=== PATIENT | male | born 1985 | race Caucasian/White ===

== ENCOUNTER 2018-10-20 07:53 | Emergency (ER) | payer OTHER, SELFPAY ==
[2018-10-20 08:04] VITALS: BP 139/94; PULSE 45; RESP 18; TEMP 36.5; O2SAT 99; BMI 23.4
--- NOTE | 2018-10-20 08:07 | ED.NAVMDI ---
HPI - Nausea/Vomiting/Diarrhea General Chief complaint: Nausea/Vomiting/Diarrhea Stated complaint: constant throwing up,stomach discomfort, chest mel Time Seen by Provider: 10/20/18 07:58 Source: patient Mode of arrival: ambulatory Limitations: no limitations History of Present Illness HPI Narrative: Patient is a 33-year-old male presenting with vomiting for the last 3 days. He says he can't keep anything down not even water. He threw up 20 minutes prior to arrival he says that his chest hurts, and he is feeling short of breath. He also has diffuse abdominal pain. No diarrhea no fever. He says that he feels short of breath all the time even at rest. He admits to smoking a pack a day. MD complaint: nausea and vomiting Onset (ago): day(s) (3) Description of Diarrhea: none Associated Abdominal Pain: Yes Location of pain: diffuse Severity: moderate Relieving factors: none Related Data Previous Rx's Medication Instructions Recorded hydroxyzine pamoate [Vistaril] 25 mg PO Q6-8H PRN #20 cap 10/20/18 Allergies Allergy/AdvReac Type Severity Reaction Status Date / Time No Known Drug Allergies Allergy Verified 10/20/18 08:09 Review of Systems Review of Systems GENERAL: Denies chills, fatigue, malaise, fever, sweats, travel HEENT: Denies sinus pain, ear pain, sore throat, difficulty swallowing, neck pain RESPIRATORY: Denies dyspnea, cough, wheezing, hemoptysis, sputum. CARDIOVASCULAR: Denies chest pain, palpitations, orthopnea, edema GASTROINTESTINAL: see HPI : Denies dysuria, frequency, incontinence, hematuria, urinary retention, flank pain. MUSCULOSKELETAL: Denies weakness, joint pain, or bony pain SKIN: No rash, no erythema, no pruritus NEUROLOGIC: Denies weakness, dizziness, headache, numbness, change in speech, confusion PSYCHIATRIC: No concerning psychosocial issues. 12 point review of systems is negative except for those stated above and HPI [facility] Medical History Patient denies significant medical history (Acute) Social History Smoking Status: Current every day smoker Social History (Updated 10/20/18 @ 08:13 by Jessica Hanks DO) Smoking Status: Current every day smoker Exam Initial Vital Signs Initial Vital Signs: Vital Signs Temperature 97.7 F 10/20/18 08:04 Pulse Rate 45 L 10/20/18 08:04 Respiratory Rate 18 10/20/18 08:04 Blood Pressure 139/94 H 10/20/18 08:04 Pulse Oximetry 99 10/20/18 08:04 GENERAL: Well-appearing, well-nourished and in no acute distress. HEENT: Head atraumatic,EOMI, pupils reactive, face symmetric, moist mucous membranes CARDIOVASCULAR: Regular rate and rhythm without murmurs, rubs or gallops. RESPIRATORY: Breath sounds equal bilaterally, no wheezes rales or rhonchi. ABDOMEN: Soft, mildly tender epigastric area no guarding no rebound no lower abdominal pain EXTREMITIES: Normal range of motion, no clubbing or edema. Neurovascularly intact NEUROLOGICAL: Alert and oriented x4.Normal gait and speech. Cranial nerves II through XII grossly intact. SKIN: Warm, dry, no laceration, no petechiae, no rashes or lesions. Course Orders Ordered: ED Orders 10/20/18 08:06 XR chest 1V Stat 10/20/18 08:16 Complete Blood Count AUTO DIFF Stat Comprehensive Metabolic Panel Stat Lipase Stat Thyroid Stimulating Hormone Stat Troponin & CK Cardiac Panel Stat 10/20/18 09:06 EKG-12 Lead Stat Discontinued Medications Albuterol (Ventolin) 2.5 mg INH NOW ONE Stop: 10/20/18 08:07 Last Admin: 10/20/18 08:27 Dose: 2.5 mg Albuterol (Ventolin) 2.5 mg INH NOW ONE Stop: 10/20/18 09:07 Last Admin: 10/20/18 10:53 Dose: Not Given Hydroxyzine HCl (Vistaril) 50 mg IM NOW ONE Stop: 10/20/18 10:03 Last Admin: 10/20/18 10:09 Dose: 50 mg Sodium Chloride (Normal Saline 0.9%) 1,000 mls @ 1,000 mls/hr IV CONT CARLO Last Infusion: 10/20/18 09:17 Dose: 0 mls/hr Admin: 10/20/18 08:25 Dose: 1,000 mls/hr Sodium Chloride (Normal Saline 0.9%) 1,000 mls @ 1,000 mls/hr IV BOLUS ONE Stop: 10/20/18 11:04 Last Infusion: 10/20/18 11:43 Dose: 0 mls/hr Admin: 10/20/18 10:09 Dose: 1,000 mls/hr Ondansetron HCl (Zofran) 4 mg IV NOW ONE Stop: 10/20/18 08:07 Last Admin: 10/20/18 08:27 Dose: 4 mg Pantoprazole Sodium (Protonix) 40 mg IV NOW ONE Stop: 10/20/18 08:07 Last Admin: 10/20/18 08:26 Dose: 40 mg Consultations Consultation #1: 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 Recommends jogging in place at bedside see what happened. Heart rate. Heart rate improves can likely follow up with Dr. Dale and have echocardiogram Time: 10:23 Consultation #2: Dr. Dale consulted. Will schedule for follow up. Time: 10:31 Vital Signs - 8 hr 10/20/18 08:04 10/20/18 08:41 10/20/18 09:57 Temperature 97.7 F Pulse Rate 45 L 52 L 68 Respiratory Rate 18 15 23 Blood Pressure 139/94 H Blood Pressure [Right Arm] 140/87 Pulse Oximetry 99 100 100 10/20/18 11:00 10/20/18 12:06 Temperature Pulse Rate 50 L 45 L Respiratory Rate 24 15 Blood Pressure 141/87 H Blood Pressure [Right Arm] 117/79 Pulse Oximetry 98 100 MDM - Nausea/Vomiting/Diarrhea Lab Data Attestation: I reviewed the patient's lab results. Result diagrams: 10/20/18 08:16 10/20/18 08:16 Lab Results 10/20/18 10/20/18 10/20/18 Range/Units 08:16 08:16 08:16 WBC 10.3 (4.5-11.0) X10^3/uL RBC 4.84 (4.5-5.9) X10^6/uL Hgb 16.1 (13.5-17.5) g/dL Hct 46.1 (41-53) % MCV 95.2 (80-100) fL MCH 33.2 (26-34) PG MCHC 34.9 (30-36) % RDW 12.9 (11.6-14.8) % Plt Count 242 (150-400) X10^3/uL Neut % (Auto) 71.6 (50-75) % Lymph % (Auto) 18.6 L (25-40) % [place] % (Auto) 8.1 (3-14) % Eos % (Auto) 1.4 L (2-4) % Baso % (Auto) 0.3 (0-2) % Neut # (Auto) 7300 H (0880-2757) /uL Lymph # (Auto) 1900 (3531-3262) /uL [place] # (Auto) 800 (0-900) /uL Eos # (Auto) 100 (0-450) /uL Baso # (Auto) 0 (0-100) /uL Sodium 143 (137-145) mmol/L Potassium 4.0 (3.4-5.1) mmol/L Chloride 109 H (98-107) mmol/L Carbon Dioxide 24 (22-32) mmol/L BUN 16 (9-20) mg/dL Creatinine 0.80 (0.66-1.25) mg/dL Estimated GFR > 60.0 (>60) mL/min BUN/Creatinine Ratio 20.0 (6-22) Glucose 101 H (70-100) mg/dL Calcium 9.9 (8.4-10.2) mg/dL Total Bilirubin 0.5 (0.2-1.3) mg/dL AST 28 (17-59) IU/L ALT 33 (21-72) IU/L Alkaline Phosphatase 51 (38-126) U/L Total Creatine Kinase 47 L (55-170) U/L CK-MB (CK-2) TNP CK-MB (CK-2) Rel Index TNP Troponin I < 0.012 (0.01-0.034) ng/mL Total Protein 7.7 (6.3-8.2) g/dL Albumin 4.6 (3.5-5.0) g/dL Globulin 3.1 (1.7-4.1) g/dL Albumin/Globulin Ratio 1.5 (1.0-2.8) Lipase 47 (23-300) U/L TSH 1.28 (0.47-4.68) uIU/mL Imaging Data Chest x-ray: Radiologist's impression: PROCEDURE: XR CHEST 1V INDICATIONS: short of breath TECHNIQUE: One view of the chest was acquired. COMPARISON: None. FINDINGS: Surgical changes and devices: None. Lungs and pleura: Lungs are clear. No pleural effusions or pneumothorax. Mediastinum: Mediastinal contours appear normal. Heart size is normal. Bones and chest wall: No suspicious bony lesions. Overlying soft tissues appear unremarkable. IMPRESSION: No acute process. Dictated by: Tarik Flaherty M.D. on 10/20/2018 at 8:27 ECG Data Attestation: I personally reviewed and interpreted this ECG as follows: Prior ECG tracings: not available for review Interpretation: EKG 1.: 1 sinus bradycardia rate 46 NE interval 93 PAC noted delta wave also noted no priors to compare EKG 2. 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 He has not passed out he has no known family history of sudden cardiac . He is persistently nauseous and vomiting despite Zofran. His QTC is actually 440 reluctant to give him any QT prolongation medications. He is given 1 dose of Vistaril IM. Parents at bedside I have explained this to them. Joy recommend outpatient follow-up with Dr. Dale. I have called Dr. Dale, his office will contact patient. Patient's heart rate does increase with vomiting his 70s. His is symptomatic. This is likely an incidental finding. Discussed plan with patient's significant other patient and his parents. He is given appropriate information PCP and follow Cardiology Discharge Plan Departure Patient Disposition: Home Clinical Impression: Gastroenteritis, Yxhow-Harebxjro-Ftpoh (WPW) pattern Discharge Date/Time: 10/20/18 12:06 Interventions: ED Discharge Assessment Last Done: 10/20/18 12:06 Instructions: Wxpzx-Wdaqguqya-Seoaf Syndrome, Viral Gastroenteritis Activity Restrictions/Additional Instructions: *You have been diagnosed with probable gastroenteritis and Ntxcf-Tocehvspm-Xrijn *What to do: Increase fluid intake as tolerated recommend Gatorade or Gatorade like substance, try clear liquid diet for the next 24 hours You have an electrical problem with her heart. It is imperative that he follow up with Cardiology. If you do not hear from them tomorrow by end of day please call them *Continue to take medications as directed Vistaril 25 mg every 6 hours if needed for nausea or vomiting *Follow up with your primary care provider in 2-3 days. Please call [phone] to schedule for a primary care provider Dr. Frannie Dale *Return to ER if you should have persistent vomiting, worsening chest pain, passing out or any new, worsening or concerning symptoms Prescriptions: New hydroxyzine pamoate [Vistaril] 25 mg capsule 25 mg PO Q6-8H PRN (Reason: nausea and vomiting) Qty: 20 RF: 0 Referrals: [facility] [Outside] Jon Dale MD [Physician] -
--- NOTE | 2018-10-20 08:14 | ED_ITS ---
HPI - Nausea/Vomiting/Diarrhea General Chief complaint: Nausea/Vomiting/Diarrhea Stated complaint: constant throwing up,stomach discomfort, chest mel Time Seen by Provider: 10/20/18 07:58 Source: patient Mode of arrival: ambulatory Limitations: no limitations History of Present Illness HPI Narrative: Patient is a 33-year-old male presenting with vomiting for the last 3 days. He says he can't keep anything down not even water. He threw up 20 minutes prior to arrival he says that his chest hurts, and he is feeling short of breath. He also has diffuse abdominal pain. No diarrhea no fever. He says that he feels short of breath all the time even at rest. He admits to smoking a pack a day. MD complaint: nausea and vomiting Onset (ago): day(s) (3) Description of Diarrhea: none Associated Abdominal Pain: Yes Location of pain: diffuse Severity: moderate Relieving factors: none Related Data Previous Rx's Medication Instructions Recorded hydroxyzine pamoate [Vistaril] 25 mg PO Q6-8H PRN #20 cap 10/20/18 Allergies Allergy/AdvReac Type Severity Reaction Status Date / Time No Known Drug Allergies Allergy Verified 10/20/18 08:09 Review of Systems Review of Systems GENERAL: Denies chills, fatigue, malaise, fever, sweats, travel HEENT: Denies sinus pain, ear pain, sore throat, difficulty swallowing, neck pain RESPIRATORY: Denies dyspnea, cough, wheezing, hemoptysis, sputum. CARDIOVASCULAR: Denies chest pain, palpitations, orthopnea, edema GASTROINTESTINAL: see HPI : Denies dysuria, frequency, incontinence, hematuria, urinary retention, flank pain. MUSCULOSKELETAL: Denies weakness, joint pain, or bony pain SKIN: No rash, no erythema, no pruritus NEUROLOGIC: Denies weakness, dizziness, headache, numbness, change in speech, confusion PSYCHIATRIC: No concerning psychosocial issues. 12 point review of systems is negative except for those stated above and HPI [facility] Medical History Patient denies significant medical history (Acute) Social History Smoking Status: Current every day smoker Social History (Updated 10/20/18 @ 08:13 by Jessica Hanks DO) Smoking Status: Current every day smoker Exam Initial Vital Signs Initial Vital Signs: Vital Signs Temperature 97.7 F 10/20/18 08:04 Pulse Rate 45 L 10/20/18 08:04 Respiratory Rate 18 10/20/18 08:04 Blood Pressure 139/94 H 10/20/18 08:04 Pulse Oximetry 99 10/20/18 08:04 GENERAL: Well-appearing, well-nourished and in no acute distress. HEENT: Head atraumatic,EOMI, pupils reactive, face symmetric, moist mucous membranes CARDIOVASCULAR: Regular rate and rhythm without murmurs, rubs or gallops. RESPIRATORY: Breath sounds equal bilaterally, no wheezes rales or rhonchi. ABDOMEN: Soft, mildly tender epigastric area no guarding no rebound no lower abdominal pain EXTREMITIES: Normal range of motion, no clubbing or edema. Neurovascularly intact NEUROLOGICAL: Alert and oriented x4.Normal gait and speech. Cranial nerves II through XII grossly intact. SKIN: Warm, dry, no laceration, no petechiae, no rashes or lesions. Course Orders Ordered: ED Orders 10/20/18 08:06 XR chest 1V Stat 10/20/18 08:16 Complete Blood Count AUTO DIFF Stat Comprehensive Metabolic Panel Stat Lipase Stat Thyroid Stimulating Hormone Stat Troponin & CK Cardiac Panel Stat 10/20/18 09:06 EKG-12 Lead Stat Discontinued Medications Albuterol (Ventolin) 2.5 mg INH NOW ONE Stop: 10/20/18 08:07 Last Admin: 10/20/18 08:27 Dose: 2.5 mg Albuterol (Ventolin) 2.5 mg INH NOW ONE Stop: 10/20/18 09:07 Last Admin: 10/20/18 10:53 Dose: Not Given Hydroxyzine HCl (Vistaril) 50 mg IM NOW ONE Stop: 10/20/18 10:03 Last Admin: 10/20/18 10:09 Dose: 50 mg Sodium Chloride (Normal Saline 0.9%) 1,000 mls @ 1,000 mls/hr IV CONT CARLO Last Infusion: 10/20/18 09:17 Dose: 0 mls/hr Admin: 10/20/18 08:25 Dose: 1,000 mls/hr Sodium Chloride (Normal Saline 0.9%) 1,000 mls @ 1,000 mls/hr IV BOLUS ONE Stop: 10/20/18 11:04 Last Infusion: 10/20/18 11:43 Dose: 0 mls/hr Admin: 10/20/18 10:09 Dose: 1,000 mls/hr Ondansetron HCl (Zofran) 4 mg IV NOW ONE Stop: 10/20/18 08:07 Last Admin: 10/20/18 08:27 Dose: 4 mg Pantoprazole Sodium (Protonix) 40 mg IV NOW ONE Stop: 10/20/18 08:07 Last Admin: 10/20/18 08:26 Dose: 40 mg Consultations Consultation #1: 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 Recommends jogg ing in place at bedside see what happened. Heart rate. Heart rate improves can likely follow up with Dr. Dale and have echocardiogram Time: 10:23 Consultation #2: Dr. Dale consulted. Will schedule for follow up. Time: 10:31 Vital Signs - 8 hr 10/20/18 08:04 10/20/18 08:41 10/20/18 09:57 Temperature 97.7 F Pulse Rate 45 L 52 L 68 Respiratory Rate 18 15 23 Blood Pressure 139/94 H Blood Pressure [Right Arm] 140/87 Pulse Oximetry 99 100 100 10/20/18 11:00 10/20/18 12:06 Temperature Pulse Rate 50 L 45 L Respiratory Rate 24 15 Blood Pressure 141/87 H Blood Pressure [Right Arm] 117/79 Pulse Oximetry 98 100 MDM - Nausea/Vomiting/Diarrhea Lab Data Attestation: I reviewed the patient's lab results. Result diagrams: 10/20/18 08:16 10/20/18 08:16 Lab Results 10/20/18 10/20/18 10/20/18 Range/Units 08:16 08:16 08:16 WBC 10.3 (4.5-11.0) X10^3/uL RBC 4.84 (4.5-5.9) X10^6/uL Hgb 16.1 (13.5-17.5) g/dL Hct 46.1 (41-53) % MCV 95.2 (80-100) fL MCH 33.2 (26-34) PG MCHC 34.9 (30-36) % RDW 12.9 (11.6-14.8) % Plt Count 242 (150-400) X10^3/uL Neut % (Auto) 71.6 (50-75) % Lymph % (Auto) 18.6 L (25-40) % [place] % (Auto) 8.1 (3-14) % Eos % (Auto) 1.4 L (2-4) % Baso % (Auto) 0.3 (0-2) % Neut # (Auto) 7300 H (5938-1343) /uL Lymph # (Auto) 1900 (1559-6418) /uL [place] # (Auto) 800 (0-900) /uL Eos # (Auto) 100 (0-450) /uL Baso # (Auto) 0 (0-100) /uL Sodium 143 (137-145) mmol/L Potassium 4.0 (3.4-5.1) mmol/L Chloride 109 H (98-107) mmol/L Carbon Dioxide 24 (22-32) mmol/L BUN 16 (9-20) mg/dL Creatinine 0.80 (0.66-1.25) mg/dL Estimated GFR > 60.0 (>60) mL/min BUN/Creatinine Ratio 20.0 (6-22) Glucose 101 H (70-100) mg/dL Calcium 9.9 (8.4-10.2) mg/dL Total Bilirubin 0.5 (0.2-1.3) mg/dL AST 28 (17-59) IU/L ALT 33 (21-72) IU/L Alkaline Phosphatase 51 (38-126) U/L Total Creatine Kinase 47 L (55-170) U/L CK-MB (CK-2) TNP CK-MB (CK-2) Rel Index TNP Troponin I < 0.012 (0.01-0.034) ng/mL Total Protein 7.7 (6.3-8.2) g/dL Albumin 4.6 (3.5-5.0) g/dL Globulin 3.1 (1.7-4.1) g/dL Albumin/Globulin Ratio 1.5 (1.0-2.8) Lipase 47 (23-300) U/L TSH 1.28 (0.47-4.68) uIU/mL Imaging Data Chest x-ray: Radiologist's impression: PROCEDURE: XR CHEST 1V INDICATIONS: short of breath TECHNIQUE: One view of the chest was acquired. COMPARISON: None. FINDINGS: Surgical changes and devices: None. Lungs and pleura: Lungs are clear. No pleural effusions or pneumothorax. Mediastinum: Mediastinal contours appear normal. Heart size is normal. Bones and chest wall: No suspicious bony lesions. Overlying soft tissues appear unremarkable. IMPRESSION: No acute process. Dictated by: Tarik Flaherty M.D. on 10/20/2018 at 8:27 ECG Data Attestation: I personally reviewed and interpreted this ECG as follows: Prior ECG tracings: not available for review Interpretation: EKG 1.: 1 sinus bradycardia rate 46 MI interval 93 PAC noted delta wave also noted no priors to compare EKG 2. 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 He has not passed out he has no known family history of sudden cardiac . He is persistently nauseous and vomiting despite Zofran. His QTC is actually 440 reluctant to give him any QT prolongation medications. He is given 1 dose of Vistaril IM. Parents at bedside I have explained this to them. Joy recommend outpatient follow-up with Dr. Dale. I have called Dr. Dale, his office will contact patient. Patient's heart rate does increase with vomiting his 70s. His is symptomatic. This is likely an incidental finding. Discussed plan with patient's significant other patient and his parents. He is given appropriate information PCP and follow Cardiology Discharge Plan Departure Patient Disposition: Home Clinical Impression: Gastroenteritis, Vcnen-Iebafgbzk-Wbuar (WPW) pattern Discharge Date/Time: 10/20/18 12:06 Interventions: ED Discharge Assessment Last Done: 10/20/18 12:06 Instructions: Stikf-Dtvmckjfz-Hzpna Syndrome, Viral Gastroenteritis Activity Restrictions/Additional Instructions: *You have been diagnosed with probable gastroenteritis and Glpbc-Lsocdpbsv-Foknz *What to do: Increase fluid intake as tolerated recommend Gatorade or Gatorade like substance, try clear liquid diet for the next 24 hours You have an electrical problem with her heart. It is imperative that he follow up with Cardiology. If you do not hear from them tomorrow by end of day please call them *Continue to take medications as directed Vistaril 25 mg every 6 hours if needed for nausea or vomiting *Follow up with your primary care provider in 2-3 days. Please call [phone] to schedule for a primary care provider Dr. Frannie Dale *Return to ER if you should have persistent vomiting, worsening chest pain, passing out or any new, worsening or concerning symptoms Prescriptions: New hydroxyzine pamoate [Vistaril] 25 mg capsule 25 mg PO Q6-8H PRN (Reason: nausea and vomiting) Qty: 20 RF: 0 Referrals: [facility] [Outside] Jon Dale MD [Physician] -
[2018-10-20] MEDS: SODIUM CHLORIDE 0.9% 1,000 ML 1000 ML IV ×2 (08:25→10:09)
[2018-10-20 08:26] LABS: Add Manual Diff / Slide Review NO; Basophils Absolute Auto 0 /uL (0-100); Basophils Percent Auto 0.3 % (0-2); Eosinophils Absolute Auto 100 /uL (0-450); Eosinophils Percent Auto 1.4 % (2-4); Hematocrit 46.1 % (41-53); Hemoglobin 16.1 g/dL (13.5-17.5); Lymphocytes Absolute Auto 1900 /uL (1100-4500); Lymphocytes Percent Auto 18.6 % (25-40); Mean Corpuscular HGB Conc 34.9 % (30-36); Mean Corpuscular Hemoglobin 33.2 PG (26-34); Mean Corpuscular Volume 95.2 fL (80-100); Monocytes Absolute Auto 800 /uL (0-900); Monocytes Percent Auto 8.1 % (3-14); Neutrophils Absolute Auto 7300 /uL (1500-7000); Neutrophils Percent Auto 71.6 % (50-75); Platelet Count 242 X10^3/uL (150-400); Red Blood Cell Count 4.84 X10^6/uL (4.5-5.9); Red Cell Distribution Width 12.9 % (11.6-14.8); White Blood Cell Count 10.3 X10^3/uL (4.5-11.0)
[2018-10-20] MEDS: PANTOPRAZOLE 40 MG VIAL IV (08:26)
[2018-10-20] MEDS: ALBUTEROL 2.5 MG/3 ML NEB (ADULT) INH (08:27)
[2018-10-20] MEDS: ONDANSETRON 4 MG/2 ML INJ IV (08:27)
[2018-10-20 08:41] VITALS: PULSE 52; RESP 15; O2SAT 100
[2018-10-20 08:42] LABS: Alanine Aminotransferase 33 IU/L (21-72); Albumin 4.6 g/dL (3.5-5.0); Albumin Globulin Ratio 1.5 (1.0-2.8); Alkaline Phosphatase 51 U/L (38-126); Aspartate Aminotransferase 28 IU/L (17-59); Bilirubin Total 0.5 mg/dL (0.2-1.3); Blood Urea Nitrogen 16 mg/dL (9-20); Calcium 9.9 mg/dL (8.4-10.2); Carbon Dioxide 24 mmol/L (22-32); Chloride 109 mmol/L (98-107); Creatine Kinase 47 U/L (55-170); Estimated Glomerular Filt Rate > 60.0 mL/min (>60); Globulin 3.1 g/dL (1.7-4.1); Glucose 101 mg/dL (70-100); HEMOLYSIS 16 (0-50); Lipase 47 U/L (23-300); Sodium 143 mmol/L (137-145); Total Protein 7.7 g/dL (6.3-8.2)
[2018-10-20 08:54] LABS: Troponin I < 0.012 ng/mL (0.01-0.034)
--- NOTE | 2018-10-20 09:16 | PC.NURSE ---
PO challenge with ice water and popsicle
[2018-10-20 09:57] VITALS: BP 140/87; PULSE 68; RESP 23; O2SAT 100
[2018-10-20] MEDS: hydrOXYzine 50 MG/ML INJ IM (10:09)
[2018-10-20 10:53] LABS: Thyroid Stimulating Hormone 1.28 uIU/mL (0.47-4.68)
[2018-10-20 11:00] VITALS: BP 117/79; PULSE 50; RESP 24; O2SAT 98
[2018-10-20 12:06] VITALS: BP 141/87; PULSE 45; RESP 15; O2SAT 100
== END 2018-10-20 12:06 | disposition home or self-care (01) ==
PROVIDERS: Emergency Provider Emergency Medicine
DX: K52.9 Noninfective gastroenteritis and colitis, unspecified (principal); I45.6 Pre-excitation syndrome; R07.9 Chest pain, unspecified; R00.1 Bradycardia, unspecified
CPT/HCPCS: 36591; 71045; 80053; 82550; 83690; 84443; 84484; 85025; 93005; 93010; 94640; 96361; 96372; 96374; 96375; 99283; 99285; C9113; J2405; J3410; J7613

== ENCOUNTER → 2018-11-14 16:00 | Outpatient (CLI) | payer OTHER, SELFPAY ==
--- NOTE | 2018-11-14 | DI.ECHO.S_ITS ---
[facility]---------+ [facility] +---------+ : : [address] : : : : [id number] : : : : Phone: [phone] Echocardiogram Report + + :Name: EUSEBIO HILARIO Study Date: 11/14/2018 Height: 71 in : :[facility] Weight: 162 lb : : Gender: Male BSA: 1.9 m2 : :: 1985 Age: 33 yrs BP: 102/64 mmHg: :Reason For Study: Arrhythmia, SVT : :Ordering Physician: Jon Lira : :[place] Performed By: Deanna Pedroza : :Referring: Rebecca Lanza : + + Interpretation Summary The ejection fraction is estimated to be 60-65%. The IVC is dilated (diameter is greater than 2.1 cm) yet it collapses greater than 50% with a sniff. This suggests a right atrial pressure of 8 mm Hg. There is no significant valvular heart disease. Procedure: A two-dimensional transthoracic echocardiogram with color flow and Doppler was performed. The study quality was technically good. There is no prior echocardiogram noted for this patient. The patient was in normal sinus rhythm during the exam. Left Ventricle: The left ventricle is normal in size, wall thickness, and systolic function without any focal wall motion abnormalities. The ejection fraction is estimated to be 60-65%. Left ventricular wall motion is normal. Diastolic parameters suggest probable normal left ventricular diastolic function and normal filling pressures. Right Ventricle: The right ventricle grossly appears normal in size with probable normal systolic function. Atria: The left atrial size is normal. Right atrial size is normal. The interatrial septum is intact with no evidence for an atrial septal defect. Mitral Valve: The mitral valve is normal in structure and function. There is no mitral regurgitation noted. Aortic Valve: The aortic valve is trileaflet. The aortic valve opens well. No aortic regurgitation is present. Tricuspid Valve: The tricuspid valve is normal in structure and function. No tricuspid regurgitation. Pulmonic Valve: The pulmonic valve is normal in structure and function. There is trace pulmonic regurgitation. Great Vessels: The aortic root is normal size. The dimensions of the ascending aorta are normal. The IVC is dilated (diameter is greater than 2.1 cm) yet it collapses greater than 50% with a sniff. This suggests a right atrial pressure of 8 mm Hg. Pericardium/ Pleura There is no pericardial effusion. There is no pleural effusion. MMode/2D Measurements & Calculations LVIDd: 5.7 cm Ao root diam: 3.8 cm LVIDs: 3.8 cm Aortic Jxn: 2.8 cm FS: 32.7 % asc Aorta Diam: 3.2 cm EPSS: 0.54 cm Ao Arch Diam (Prox Trans): 3.0 cm IVSd: 0.86 cm LVPWd: 0.86 cm LV pham. diameter/BSA (cm/m^2): 2.9 LV sys. diameter/BSA (cm/m^2): 2.0 LA dimension: 3.7 cm RA long axis: 4.3 cm LA A2 area: 16.8 cm2 RA area: 17.3 cm2 LA A4 area: 19.9 cm2 RA vol: 58.9 ml LA length (vol): 4.7 cm RA : 30.6 ml/m2 LA vol: 61.1 ml IVC diam: 2.3 cm LA vol index: 31.7 ml/m2 RVDd major: 6.0 cm RVD1 (basal): 4.7 cm RVD2 (mid): 3.9 cm Doppler Measurements & Calculations Ao V2 max: 120.9 cm/sec MV E max nicola: 78.2 cm/sec Ao V2 mean: 77.9 cm/sec MV A max nicola: 45.1 cm/sec Ao max P.8 mmHg MV E/A: 1.7 Ao mean P.8 mmHg Med Peak E' Nicola: 9.5 cm/sec Ao V2 VTI: 24.2 cm E/E' med: 8.3 Lat Peak E' Nicola: 12.4 cm/sec E/E' lat: 6.3 E/e' average: 7.3 MV dec time: 0.27 sec MV P1/2t: 78.8 msec PA V2 max: 71.0 cm/sec MV P1/2t max nicola: 77.2 cm/sec PA V2 mean: 48.3 cm/sec MVA(P1/2t): 2.8 cm2 PA mean P.1 mmHg PA Accel Time: 0.17 sec Reading Physician:07:58 AM
== END ==
PROVIDERS: PCP Hospitalist; Visit Provider Internal Medicine Cardiovascular Disease
DX: I47.1 Supraventricular tachycardia (principal)
CPT/HCPCS: 93306

== ENCOUNTER 2018-12-26 11:47 | Emergency (ER) | payer OTHER, SELFPAY ==
[2018-12-26] VITALS (8 sets, daily range): BP systolic 118–132; BP diastolic 66–75; PULSE 51–72; RESP 14–20; TEMP 36.4; O2SAT 97–100
--- NOTE | 2018-12-26 12:06 | DI.CT.S_ITS ---
PROCEDURE: CT HEAD/BRAIN WO CON INDICATIONS: syncope, no recall, head injury TECHNIQUE: Noncontrast 4.5 mm thick angled axial sections acquired from the foramen magnum to the vertex, with coronal and sagittal reformats. For radiation dose reduction, the following was used: automated exposure control, adjustment of mA and/or kV according to patient size. COMPARISON: None. FINDINGS: Image quality: Excellent. CSF spaces: Basal cisterns are patent. No extra-axial fluid collections. Ventricles are normal in size and shape. Brain: No midline shift. No intracranial masses or hemorrhage. Acevedo-white matter interface is normal. Skull and face: Calvarium and visualized facial bones are intact, without suspicious lesions. Sinuses: Visualized sinuses and mastoids are clear. IMPRESSION: No trauma found. Findings called to the emergency room physician caring for the patient. Dictated by: Chris Landaverde M.D. on 12/26/2018 at 12:45 Approved by: Chris Landaverde M.D. on 12/26/2018 at 12:47
[2018-12-26 12:09] LABS: Add Manual Diff / Slide Review NO; Basophils Absolute Auto 0 /uL (0-100); Basophils Percent Auto 0.3 % (0-2); Eosinophils Absolute Auto 0 /uL (0-450); Eosinophils Percent Auto 0.2 % (2-4); Hematocrit 47.4 % (41-53); Hemoglobin 16.3 g/dL (13.5-17.5); Lymphocytes Absolute Auto 1300 /uL (1100-4500); Lymphocytes Percent Auto 9.5 % (25-40); Mean Corpuscular HGB Conc 34.3 % (30-36); Mean Corpuscular Hemoglobin 32.8 PG (26-34); Mean Corpuscular Volume 95.6 fL (80-100); Monocytes Absolute Auto 1000 /uL (0-900); Neutrophils Absolute Auto 11500 /uL (1500-7000); Platelet Count 216 X10^3/uL (150-400); Red Blood Cell Count 4.95 X10^6/uL (4.5-5.9); Red Cell Distribution Width 12.7 % (11.6-14.8); White Blood Cell Count 13.9 X10^3/uL (4.5-11.0)
--- NOTE | 2018-12-26 12:10 | ED.SYNCOPE ---
HPI - Syncope General Chief Complaint: Fall Stated Complaint: fell cant remember where Time Seen by Provider: 12/26/18 11:50 Source: patient and family Mode of arrival: ambulatory Limitations: no limitations History of Present Illness HPI narrative: 33M nonsmoker with recent diagnosis of WPW presents with a chief complaint of an unwitnessed trip and fall. When questioned the patient states that he assumes that he fell because he woke up on the ground and had some bumps and bruises. He has no recall of the event and states he felt completely fine until he woke up on the ground. He does have a hematoma on his occiput, takes no blood thinners and denies any vomiting. He is completely asymptomatic here and denies any chest pain or shortness of breath. He was recently diagnosed with WPW and is scheduled for a cardiac ablation in April. He denies any new medications or change in diet. He has no seizure history Prodromal symptoms: none Witnessed: no Injuries sustained associated with event: head Current symptoms: none and back to baseline History: other Treatments prior to arrival: none Related Data Previous Rx's Medication Instructions Recorded hydroxyzine pamoate [Vistaril] 25 mg PO Q6-8H PRN #20 cap 10/20/18 omeprazole 20 mg capsule,delayed 20 mg PO DAILY #30 cap 10/25/18 release Allergies Allergy/AdvReac Type Severity Reaction Status Date / Time bee venom protein (honey bee) Allergy Severe Anaphylaxis Verified 10/25/18 10:45 Review of Systems Constitutional Denies chills, Denies fever(s), Denies lethargy and Denies weakness Eyes Denies change in vision, Denies eye discharge, Denies irritation and Denies loss of vision ENT Ears, Nose, Mouth, and Throat: Denies change in voice, Denies neck pain and Denies sore throat Cardiovascular Denies chest pain, Denies irregular heart rhythm, Denies lightheadedness, Denies palpitations, Denies dyspnea, Denies dyspnea on exertion and Denies orthopnea Respiratory Denies cough, Denies dyspnea, Denies dyspnea on exertion and Denies wheezing Gastrointestinal Gastrointestinal: Denies abdominal pain, Denies change in bowel habits, Denies diarrhea, Denies nausea and Denies vomiting Genitourinary Denies hematuria, Denies flank pain, Denies urinary incontinence and Denies urinary urgency Musculoskeletal Denies neck pain Integumentary/Breasts Denies pruritus, Denies erythema, Denies rash and Denies wounds Neurologic Denies confusion, Denies loss of vision and Denies weakness Psychiatric Denies anxiety, Denies confusion, Denies depression, Denies homicidal ideation and Denies suicidal ideation Endocrine Denies palpitations Hematologic/Lymphatic Denies easy bruising Allergic/Immunologic Denies wheezing [facility] Medical History Patient denies significant medical history (Acute) Carpal tunnel syndrome (Chronic) Foot pain (Chronic) Surgical History [place] teeth removed (Resolved) Family History Father Diabetes mellitus Hypertension Hyperlipidemia Mother Heart disease Cancer Stroke Social History (Updated 10/20/18 @ 08:13 by Jessica Hanks DO) Smoking Status: Current every day smoker Family History Father Diabetes mellitus Hypertension Hyperlipidemia Mother Heart disease Cancer Stroke Social History Smoking Status: Current every day smoker Exam Narrative Exam Narrative: GENERAL: Pleasant 33-year-old male appears stated age, GCS 15 and in no apparent distress HEAD: Small hematoma on ox a put and a 2nd behind the right ear. No depressed skull fracture EYES: Pupils equal round and reactive. Extraocular motions intact. No scleral icterus. No injection or drainage. ENT: Nose without bleeding, purulent drainage or septal hematoma. Throat without erythema, tonsillar hypertrophy or exudate. Uvula midline. Airway patent. NECK: Trachea midline. No JVD or lymphadenopathy. Supple, nontender, no meningeal signs. CARDIOVASCULAR: Regular rate and rhythm without murmurs, gallops, or rubs. RESPIRATORY: Clear to auscultation. Breath sounds equal bilaterally. No wheezes, rales, or rhonchi. GASTROINTESTINAL: Abdomen soft, non-tender, nondistended. No hepato-splenomegaly, or palpable masses. No guarding. EXTREMITIES: No clubbing, cyanosis, or edema. No joint tenderness, effusion, or edema noted. BACK: Nontender without deformity or crepitance. No flank tenderness. NEURO: AOx3. SKIN: No rash or erythema. Initial Vital Signs Initial Vital Signs: Vital Signs Temperature 97.6 F 12/26/18 11:53 Pulse Rate 72 12/26/18 11:53 Respiratory Rate 20 12/26/18 11:53 Blood Pressure 132/75 12/26/18 11:53 Pulse Oximetry 99 12/26/18 11:53 Course Orders Ordered: ED Orders 12/26/18 12:00 Basic Metabolic Panel Stat Complete Blood Count AUTO DIFF Stat Magnesium Stat Troponin & CK Cardiac Panel Stat 12/26/18 12:06 CT head/brain wo con Stat 12/26/18 12:15 EKG-12 Lead Stat 12/26/18 12:55 Urine Drug Screen, Rapid Stat 12/26/18 14:01 EKG-12 Lead Stat Consultations Consultation #1: Call to Cardiology at [facility]. She is able to review the records and consults with electrophysiology. They recommend transfer to [facility], and patient will have cardiac ablation on Wednesday. No medications recommended Vital Signs - 8 hr 12/26/18 11:53 12/26/18 13:00 12/26/18 14:30 Temperature 97.6 F Pulse Rate 72 51 L 57 L Respiratory Rate 20 18 14 Blood Pressure 132/75 Blood Pressure [Left Arm] 129/74 118/68 Pulse Oximetry 99 100 100 12/26/18 14:50 12/26/18 15:49 12/26/18 16:00 Temperature Pulse Rate 52 L 56 L 52 L Respiratory Rate 18 16 Blood Pressure Blood Pressure [Left Arm] 118/68 125/75 119/73 Pulse Oximetry 98 100 98 12/26/18 16:30 12/26/18 17:00 Temperature Pulse Rate 54 L 63 Respiratory Rate Blood Pressure Blood Pressure [Left Arm] 128/66 126/72 Pulse Oximetry 99 97 MDM - Syncope Lab Data Result diagrams: 12/26/18 12:00 12/26/18 12:00 Lab Results 12/26/18 12/26/18 12/26/18 Range/Units 12:00 12:00 12:55 WBC 13.9 H (4.5-11.0) X10^3/uL RBC 4.95 (4.5-5.9) X10^6/uL Hgb 16.3 (13.5-17.5) g/dL Hct 47.4 (41-53) % MCV 95.6 (80-100) fL MCH 32.8 (26-34) PG MCHC 34.3 (30-36) % RDW 12.7 (11.6-14.8) % Plt Count 216 (150-400) X10^3/uL Neut % (Auto) 83.0 H (50-75) % Lymph % (Auto) 9.5 L (25-40) % [place] % (Auto) 7.0 (3-14) % Eos % (Auto) 0.2 L (2-4) % Baso % (Auto) 0.3 (0-2) % Neut # (Auto) 46464 H (2979-0347) /uL Lymph # (Auto) 1300 (1373-5989) /uL [place] # (Auto) 1000 H (0-900) /uL Eos # (Auto) 0 (0-450) /uL Baso # (Auto) 0 (0-100) /uL Sodium 137 (137-145) mmol/L Potassium 3.8 (3.4-5.1) mmol/L Chloride 105 (98-107) mmol/L Carbon Dioxide 26 (22-32) mmol/L BUN 24 H (9-20) mg/dL Creatinine 0.70 (0.66-1.25) mg/dL Estimated GFR > 60.0 (>60) mL/min BUN/Creatinine Ratio 34.3 H (6-22) Glucose 91 (70-100) mg/dL Calcium 9.2 (8.4-10.2) mg/dL Magnesium 1.8 (1.6-2.3) mg/dL Total Creatine Kinase 110 (55-170) U/L CK-MB (CK-2) 1.34 (<2.37) ng/mL CK-MB (CK-2) Rel Index 1.2 L (1.5-5.0) % Troponin I < 0.012 (0.01-0.034) ng/mL Urine Opiates Screen Negative (Negative) Ur Oxycodone Screen Negative (Negative) Urine Methadone Screen Negative (Negative) Ur Barbiturates Screen Negative (Negative) U Tricyclic Antidepress Negative (Negative) Ur Phencyclidine Scrn Negative (Negative) Ur Amphetamines Screen Negative (Negative) U Methamphetamines Scrn Negative (Negative) Ur MDMA Scrn (Ecstasy) Negative (Negative) U Benzodiazepines Scrn Negative (Negative) Urine Cocaine Screen Negative (Negative) U Marijuana (THC) Screen Positive H (Negative) Point of Care Testing Glucose POC 91 Urine Dip Bedside Urine Glucose Negative Bedside Urine Bilirubin - Negative Bedside Urine Ketone - Negative Urine Specific [place] 1.010 Bedside Urine Occult Blood +/- Bedside Urine pH 6.0 Bedside Urine Protein - Negative Bedside Urine Urobilinogen - Negative Bedside Urine Nitrite - Negative Bedside Urine Leukocytes - Negative Esterase Critical Care Time Critical Care Time: Yes Total Critical Care Time: 30 Attestation: The high probability of a clinically significant, sudden or life threatening deterioration of the [cardiovascular] system(s) required my full and direct attention, intervention and personal management. The aggregate critical care time was [30] minutes. This time is in addition to time spent performing reported procedures but includes the following: [x] Data Review and interpretation [x] Patient assessment and monitoring of vital signs [x] Documentation [x] Medication orders and management Discharge Plan Departure Patient Disposition: General Acute Hospital Clinical Impression: Syncope Prescriptions: No Action omeprazole 20 mg capsule,delayed release(DR/EC) 20 mg PO DAILY Qty: 30 RF: 0 hydroxyzine pamoate [Vistaril] 25 mg capsule 25 mg PO Q6-8H PRN (Reason: nausea and vomiting) Qty: 20 RF: 0 Referrals: Ofelia Lanza MD [Primary Care Provider] -
[2018-12-26 12:23] LABS: BUN Creatinine Ratio 34.3 (6-22); Blood Urea Nitrogen 24 mg/dL (9-20); Calcium 9.2 mg/dL (8.4-10.2); Carbon Dioxide 26 mmol/L (22-32); Chloride 105 mmol/L (98-107); Creatine Kinase 110 U/L (55-170); Estimated Glomerular Filt Rate > 60.0 mL/min (>60); Glucose 91 mg/dL (70-100); HEMOLYSIS < 15 (0-50); Magnesium 1.8 mg/dL (1.6-2.3); Potassium 3.8 mmol/L (3.4-5.1); Sodium 137 mmol/L (137-145)
[2018-12-26 12:35] LABS: Troponin I < 0.012 ng/mL (0.01-0.034)
[2018-12-26 12:38] LABS: CKMB % Relative Index 1.2 % (1.5-5.0); Creatine Kinase MB 1.34 ng/mL (<2.37)
[2018-12-26 13:19] LABS: Urine Amphetamines Negative (Negative); Urine Barbiturates Negative (Negative); Urine Benzodiazepines Negative (Negative); Urine Cocaine Negative (Negative); Urine MDMA Negative (Negative); Urine Methadone Negative (Negative); Urine Methamphetamines Negative (Negative); Urine Morphine/Opi cutoff 2000 Negative (Negative); Urine Oxycodone Negative (Negative); Urine Phencyclidine Negative (Negative); Urine Tetrahydrocannabinol Positive (Negative); Urine Tricyclic Antidepressant Negative (Negative)
--- NOTE | 2018-12-26 16:01 | ED_ITS ---
HPI - Syncope General Chief Complaint: Fall Stated Complaint: fell cant remember where Time Seen by Provider: 12/26/18 11:50 Source: patient and family Mode of arrival: ambulatory Limitations: no limitations History of Present Illness HPI narrative: 33M nonsmoker with recent diagnosis of WPW presents with a chief complaint of an unwitnessed trip and fall. When questioned the patient states that he assumes that he fell because he woke up on the ground and had some bumps and bruises. He has no recall of the event and states he felt completely fine until he woke up on the ground. He does have a hematoma on his occiput, takes no blood thinners and denies any vomiting. He is completely asymptomatic here and denies any chest pain or shortness of breath. He was recently diagnosed with WPW and is scheduled for a cardiac ablation in April. He denies any new medications or change in diet. He has no seizure history Prodromal symptoms: none Witnessed: no Injuries sustained associated with event: head Current symptoms: none and back to baseline History: other Treatments prior to arrival: none Related Data Previous Rx's Medication Instructions Recorded hydroxyzine pamoate [Vistaril] 25 mg PO Q6-8H PRN #20 cap 10/20/18 omeprazole 20 mg capsule,delayed 20 mg PO DAILY #30 cap 10/25/18 release Allergies Allergy/AdvReac Type Severity Reaction Status Date / Time bee venom protein (honey bee) Allergy Severe Anaphylaxis Verified 10/25/18 10:45 Review of Systems Constitutional Denies chills, Denies fever(s), Denies lethargy and Denies weakness Eyes Denies change in vision, Denies eye discharge, Denies irritation and Denies loss of vision ENT Ears, Nose, Mouth, and Throat: Denies change in voice, Denies neck pain and Denies sore throat Cardiovascular Denies chest pain, Denies irregular heart rhythm, Denies lightheadedness, Denies palpitations, Denies dyspnea, Denies dyspnea on exertion and Denies orthopnea Respiratory Denies cough, Denies dyspnea, Denies dyspnea on exertion and Denies wheezing Gastrointestinal Gastrointestinal: Denies abdominal pain, Denies change in bowel habits, Denies diarrhea, Denies nausea and Denies vomiting Genitourinary Denies hematuria, Denies flank pain, Denies urinary incontinence and Denies urinary urgency Musculoskeletal Denies neck pain Integumentary/Breasts Denies pruritus, Denies erythema, Denies rash and Denies wounds Neurologic Denies confusion, Denies loss of vision and Denies weakness Psychiatric Denies anxiety, Denies confusion, Denies depression, Denies homicidal ideation and Denies suicidal ideation Endocrine Denies palpitations Hematologic/Lymphatic Denies easy bruising Allergic/Immunologic Denies wheezing [facility] Medical History Patient denies significant medical history (Acute) Carpal tunnel syndrome (Chronic) Foot pain (Chronic) Surgical History [place] teeth removed (Resolved) Family History Father Diabetes mellitus Hypertension Hyperlipidemia Mother Heart disease Cancer Stroke Social History (Updated 10/20/18 @ 08:13 by Jessica Hanks DO) Smoking Status: Current every day smoker Family History Father Diabetes mellitus Hypertension Hyperlipidemia Mother Heart disease Cancer Stroke Social History Smoking Status: Current every day smoker Exam Narrative Exam Narrative: GENERAL: Pleasant 33-year-old male appears stated age, GCS 15 and in no apparent distress HEAD: Small hematoma on ox a put and a 2nd behind the right ear. No depressed skull fracture EYES: Pupils equal round and reactive. Extraocular motions intact. No scleral icterus. No injection or drainage. ENT: Nose without bleeding, purulent drainage or septal hematoma. Throat without erythema, tonsillar hypertrophy or exudate. Uvula midline. Airway patent. NECK: Trachea midline. No JVD or lymphadenopathy. Supple, nontender, no meningeal signs. CARDIOVASCULAR: Regular rate and rhythm without murmurs, gallops, or rubs. RESPIRATORY: Clear to auscultation. Breath sounds equal bilaterally. No wheezes, rales, or rhonchi. GASTROINTESTINAL: Abdomen soft, non-tender, nondistended. No hepato-s plenomegaly, or palpable masses. No guarding. EXTREMITIES: No clubbing, cyanosis, or edema. No joint tenderness, effusion, or edema noted. BACK: Nontender without deformity or crepitance. No flank tenderness. NEURO: AOx3. SKIN: No rash or erythema. Initial Vital Signs Initial Vital Signs: Vital Signs Temperature 97.6 F 12/26/18 11:53 Pulse Rate 72 12/26/18 11:53 Respiratory Rate 20 12/26/18 11:53 Blood Pressure 132/75 12/26/18 11:53 Pulse Oximetry 99 12/26/18 11:53 Course Orders Ordered: ED Orders 12/26/18 12:00 Basic Metabolic Panel Stat Complete Blood Count AUTO DIFF Stat Magnesium Stat Troponin & CK Cardiac Panel Stat 12/26/18 12:06 CT head/brain wo con Stat 12/26/18 12:15 EKG-12 Lead Stat 12/26/18 12:55 Urine Drug Screen, Rapid Stat 12/26/18 14:01 EKG-12 Lead Stat Consultations Consultation #1: Call to Cardiology at [facility]. She is able to review the records and consults with electrophysiology. They recommend transfer to [facility], and patient will have cardiac ablation on Wednesday. No medications recommended Vital Signs - 8 hr 12/26/18 11:53 12/26/18 13:00 12/26/18 14:30 Temperature 97.6 F Pulse Rate 72 51 L 57 L Respiratory Rate 20 18 14 Blood Pressure 132/75 Blood Pressure [Left Arm] 129/74 118/68 Pulse Oximetry 99 100 100 12/26/18 14:50 12/26/18 15:49 12/26/18 16:00 Temperature Pulse Rate 52 L 56 L 52 L Respiratory Rate 18 16 Blood Pressure Blood Pressure [Left Arm] 118/68 125/75 119/73 Pulse Oximetry 98 100 98 12/26/18 16:30 12/26/18 17:00 Temperature Pulse Rate 54 L 63 Respiratory Rate Blood Pressure Blood Pressure [Left Arm] 128/66 126/72 Pulse Oximetry 99 97 MDM - Syncope Lab Data Result diagrams: 12/26/18 12:00 12/26/18 12:00 Lab Results 12/26/18 12/26/18 12/26/18 Range/Units 12:00 12:00 12:55 WBC 13.9 H (4.5-11.0) X10^3/uL RBC 4.95 (4.5-5.9) X10^6/uL Hgb 16.3 (13.5-17.5) g/dL Hct 47.4 (41-53) % MCV 95.6 (80-100) fL MCH 32.8 (26-34) PG MCHC 34.3 (30-36) % RDW 12.7 (11.6-14.8) % Plt Count 216 (150-400) X10^3/uL Neut % (Auto) 83.0 H (50-75) % Lymph % (Auto) 9.5 L (25-40) % [place] % (Auto) 7.0 (3-14) % Eos % (Auto) 0.2 L (2-4) % Baso % (Auto) 0.3 (0-2) % Neut # (Auto) 15620 H (6088-9843) /uL Lymph # (Auto) 1300 (3935-0039) /uL [place] # (Auto) 1000 H (0-900) /uL Eos # (Auto) 0 (0-450) /uL Baso # (Auto) 0 (0-100) /uL Sodium 137 (137-145) mmol/L Potassium 3.8 (3.4-5.1) mmol/L Chloride 105 (98-107) mmol/L Carbon Dioxide 26 (22-32) mmol/L BUN 24 H (9-20) mg/dL Creatinine 0.70 (0.66-1.25) mg/dL Estimated GFR > 60.0 (>60) mL/min BUN/Creatinine Ratio 34.3 H (6-22) Glucose 91 (70-100) mg/dL Calcium 9.2 (8.4-10.2) mg/dL Magnesium 1.8 (1.6-2.3) mg/dL Total Creatine Kinase 110 (55-170) U/L CK-MB (CK-2) 1.34 (<2.37) ng/mL CK-MB (CK-2) Rel Index 1.2 L (1.5-5.0) % Troponin I < 0.012 (0.01-0.034) ng/mL Urine Opiates Screen Negative (Negative) Ur Oxycodone Screen Negative (Negative) Urine Methadone Screen Negative (Negative) Ur Barbiturates Screen Negative (Negative) U Tricyclic Antidepress Negative (Negative) Ur Phencyclidine Scrn Negative (Negative) Ur Amphetamines Screen Negative (Negative) U Methamphetamines Scrn Negative (Negative) Ur MDMA Scrn (Ecstasy) Negative (Negative) U Benzodiazepines Scrn Negative (Negative) Urine Cocaine Screen Negative (Negative) U Marijuana (THC) Screen Positive H (Negative) Point of Care Testing Glucose POC 91 Urine Dip Bedside Urine Glucose Negative Bedside Urine Bilirubin - Negative Bedside Urine Ketone - Negative Urine Specific [place] 1.010 Bedside Urine Occult Blood +/- Bedside Urine pH 6.0 Bedside Urine Protein - Negative Bedside Urine Urobilinogen - Negative Bedside Urine Nitrite - Negative Bedside Urine Leukocytes - Negative Esterase Critical Care Time Critical Care Time: Yes Total Critical Care Time: 30 Attestation: The high probability of a clinically significant, sudden or life threatening deterioration of the [cardiovascular] system(s) required my full and direct attention, intervention and personal management. The aggregate critical care time was [30] minutes. This time is in addition to time spent performing reported procedures but includes the following: [x] Data Review and interpretation [x] Patient assessment and monitoring of vital signs [x] Documentation [x] Medication orders and management Discharge Plan Departure Patient Disposition: [facility] Clinical Impression: Syncope Prescriptions: No Action omeprazole 20 mg capsule,delayed release(DR/EC) 20 mg PO DAILY Qty: 30 RF: 0 hydroxyzine pamoate [Vistaril] 25 mg capsule 25 mg PO Q6-8H PRN (Reason: nausea and vomiting) Qty: 20 RF: 0 Referrals: Ofelia Lanza MD [Primary Care Provider] -
== END 2018-12-26 17:45 | disposition short-term general hospital (02) ==
PROVIDERS: Emergency Provider Emergency Medicine; PCP Hospitalist
DX: R55 Syncope and collapse (principal); S00.03XA Contusion of scalp, initial encounter; I45.6 Pre-excitation syndrome; W19.XXXA Unspecified fall, initial encounter
CPT/HCPCS: 36591; 70450; 80048; 80305; 81003; 82550; 82553; 82962; 83735; 84484; 85025; 93005; 99283; 99285

== ENCOUNTER → 2019-02-20 18:24 | Outpatient (CLI) | payer OTHER, SELFPAY ==
--- NOTE | 2019-02-20 18:26 | DI.RAD.S_ITS ---
PROCEDURE: XR WRIST RT MIN 3V INDICATIONS: wrist pain TECHNIQUE: 4 views of the wrist were acquired. COMPARISON: None. FINDINGS: Bones: No fractures or dislocations. No suspicious bony lesions. Scaphoid view: No navicular fractures are seen. Soft tissues: No suspicious soft tissue calcifications. IMPRESSION: No fractures are seen. If there is snuffbox tenderness (or other clinical suspicion for a fracture not seen on these images) please consider a short-term followup plain film study or a CT for further evaluation. Dictated by: Woody Ellison M.D. on 02/20/2019 at 18:36 Approved by: Woody Ellison M.D. on 02/20/2019 at 18:37
== END ==
PROVIDERS: PCP Hospitalist; Visit Provider Physician Assistant
DX: M25.531 Pain in right wrist (principal)
CPT/HCPCS: 73110

== ENCOUNTER → 2019-12-26 09:40 | Outpatient (CLI) | payer OTHER, SELFPAY ==
[2019-12-27 13:57] LABS: COVID19 Sendout Not Detected (Not Detect)
== END ==
PROVIDERS: PCP Hospitalist; Visit Provider Physician Assistant
DX: R05 Cough (principal); R06.2 Wheezing; R50.9 Fever, unspecified
CPT/HCPCS: 87635

== ENCOUNTER → 2020-07-11 08:48 | Outpatient (CLI) | payer OTHER, MEDICAID, SELFPAY ==
[2020-07-11 09:35] LABS: Hemoglobin A1C% w Est Avg Glu 4.9 % (4.0-6.0)
[2020-07-11 09:49] LABS: Cholesterol 203 mg/dL (140-199); HDL Cholesterol 48 mg/dL (40-60); LDL Cholesterol Calculated 121 mg/dL (<100); Triglycerides 170 mg/dL (35-150)
== END ==
PROVIDERS: PCP Family Medicine; Referring Provider Family Medicine; Visit Provider Family Medicine
DX: Z00.01 Encounter for general adult medical examination with abnormal findings (principal); I45.6 Pre-excitation syndrome; M25.561 Pain in right knee
CPT/HCPCS: 36415; 80061; 83036

== ENCOUNTER → 2020-07-25 07:00 | Outpatient (CLI) | payer OTHER, MEDICAID, SELFPAY ==
--- NOTE | 2020-07-25 07:02 | DI.RAD.S_ITS ---
PROCEDURE: XR KNEE RT 3V INDICATIONS: Right knee swelling/pain TECHNIQUE: 3 views of the knee were acquired. COMPARISON: None. FINDINGS: Bones: No fractures or dislocations. No suspicious bony lesions. Soft tissues: No joint effusion. No suspicious soft tissue calcifications. IMPRESSION: Normal right knee Dictated by: Kei Waldrop M.D. on 07/25/2020 at 8:28 Approved by: Kei Waldrop M.D. on 07/25/2020 at 8:29
--- NOTE | 2020-07-25 07:02 | DI.MRI.S_ITS ---
PROCEDURE: MR KNEE RT WO CON INDICATIONS: Persistent prepatellar bursitis TECHNIQUE: Noncontrast sagittal PD fast spin echo and T2 fast spin echo with fat saturation, sagittal 3-D FLASH with fat saturation; coronal T1 spin echo and PD fast spin echo with fat saturation, and axial PD fast spin echo with fat saturation through the knee. COMPARISON: [facility], CR, XR KNEE RT 3V, 07/25/2020, 7:04. FINDINGS: Image quality: Excellent. Menisci: There is vague linear horizontally oriented high T2 signal intensity within the posterior horn medial meniscus, demonstrating superior and inferior articular surface extension, indicating horizontal tearing. Vague linear high T2 signal intensity within the anterior and posterior horns lateral meniscus is present, demonstrating inferior articular surface extension, indicating lateral meniscal tearing. Cruciate ligaments: The anterior and posterior cruciate ligaments appear intact. Medial structures: The medial collateral ligament appears intact. Visualized portions of the pes anserinus tendons appear normal. No abnormal bursal fluid. Lateral structures: The lateral collateral ligament, long and short heads of the biceps femoris tendon appear intact. The popliteus tendon appears normal. Iliotibial band appears normal. Anterior structures: The quadriceps and patellar tendons appear intact. Patellar alignment is normal. No femoral trochlear dysplasia or ventral trochlear prominence. No edema in the infrapatellar fat pad. There is moderate prepatellar fluid with surrounding subcutaneous ill-defined T2 signal elevation. Bones and cartilage: No bone marrow contusions or fractures. Mild articular cartilage loss diffusely overlies the weight-bearing aspects of the medial femoral condyle and medial tibial plateau. Joint space: There is physiologic knee joint fluid. No Mariano's cyst. Normal appearing synovial plicae are incidentally noted. IMPRESSION: 1. Tricompartmental osteoarthritis with associated articular cartilage loss. 2. Prepatellar bursitis. 3. Medial and lateral meniscal tearing. Dictated by: Tarik Flaherty M.D. on 07/25/2020 at 9:09 Approved by: Tarik Flaherty M.D. on 07/25/2020 at 9:12
== END ==
PROVIDERS: PCP Family Medicine; Referring Provider Family Medicine; Visit Provider Family Medicine
DX: M70.41 Prepatellar bursitis, right knee (principal); I45.6 Pre-excitation syndrome; M25.561 Pain in right knee; M17.11 Unilateral primary osteoarthritis, right knee; S83.241A Other tear of medial meniscus, current injury, right knee, initial encounter; S83.281A Other tear of lateral meniscus, current injury, right knee, initial encounter
CPT/HCPCS: 73562; 73721

== ENCOUNTER → 2021-08-27 08:38 | Outpatient (CLI) | payer OTHER, SELFPAY ==
--- NOTE | 2021-08-27 09:08 | DI.RAD.S_ITS ---
PROCEDURE: XR KNEE RT 3V INDICATIONS: Knee injury TECHNIQUE: 3 views of the knee were acquired. COMPARISON: [facility], CR, XR KNEE RT 3V, 07/25/2020, 7:04. FINDINGS: Bones: No fractures or dislocations. Patella alignment is anatomic. No suspicious bony lesions. Soft tissues: Small suprapatellar joint effusion is seen. No suspicious soft tissue calcifications. IMPRESSION: No acute right knee fracture or dislocation. Small joint effusion. Dictated by: Keyur Gunn M.D. on 08/27/2021 at 9:42 Approved by: Keyur Gunn M.D. on 08/27/2021 at 9:42
== END ==
PROVIDERS: PCP Family Medicine; Referring Provider Nurse Practitioner Family; Visit Provider Nurse Practitioner Family
DX: M25.561 Pain in right knee (principal); M25.461 Effusion, right knee
CPT/HCPCS: 73562

== ENCOUNTER 2023-08-20 11:01 | Emergency (ER) | payer OTHER, SELFPAY ==
--- NOTE | 2023-08-20 11:05 | ED.UPPEXIN ---
HPI - Extremity Injury (Upper) <Jerardo Quintana PA-C - Last Filed: 08/20/23 12:17> General Chief Complaint: Extremity Injury, Upper Stated Complaint: work injury, middle finger laceration Time Seen by Provider: 08/20/23 11:04 History of Present Illness HPI narrative: This is a 38-year-old male presents emergency department due to a crush injury to his left 3rd digit. Tetanus not up-to-date. Moving a metal beam when it slipped out from his other hand and crushed his left middle finger. Denies any significant changes in range of motion. Some mild oozing blood. No other injuries to the hand. Related Data Previous Rx's Medication Instructions Recorded cephalexin 500 mg capsule 500 mg PO QID #20 caps 08/20/23 Allergies Allergy/AdvReac Type Severity Reaction Status Date / Time bee venom protein (honey bee) Allergy Severe Anaphylaxis Verified 08/27/21 08:04 Review of Systems <Jerardo Quintana PA-C - Last Filed: 08/20/23 12:17> Review of Systems Narrative: GENERAL: Denies chills, fatigue, malaise, fever, sweats. HEENT: Denies sinus pain, ear pain, sore throat, difficulty swallowing, dizziness. RESPIRATORY: Denies dyspnea, cough, wheezing, hemoptysis, sputum. CARDIOVASCULAR: Denies chest pain, palpitations, orthopnea, edema, GASTROINTESTINAL: Denies nausea, vomiting, abdominal pain, diarrhea, constipation, melena. : Denies dysuria, frequency, incontinence, hematuria, urinary retention. MUSCULOSKELETAL: Left 3rd finger pain SKIN: Denies rash, skin lesions, or other NEUROLOGIC: Denies weakness, headache, numbness, change in speech, confusion, seizures, incoordination. PSYCHIATRIC: No concerning psychosocial issues. 12 point review of systems is negative except for those stated above Patient History <Jerardo Quintana PA-C - Last Filed: 08/20/23 12:17> Medical History (Updated 08/20/23 @ 12:14 by Jerardo Quintana PA-C) Right knee pain Prepatellar bursitis Utahm-Ggcaegvoo-Hxvro (WPW) syndrome Carpal tunnel syndrome Foot pain Patient denies significant medical history Surgical History [place] teeth removed Family History Father Diabetes mellitus Hypertension Hyperlipidemia Mother Heart disease Cancer Stroke Social History Smoking Status: Current every day smoker Smoking Status: Current every day smoker alcohol intake frequency: 0-2 drinks per day Substance Use Type: marijuana Exam <Jerardo Quintana PA-C - Last Filed: 08/20/23 12:17> Narrative Exam Narrative: GENERAL: Well-developed patient, in mild distress. HEAD: Atraumatic. Normocephalic. EYES: Pupils equal round and reactive. Extraocular motions intact. No scleral icterus. No injection or drainage. ENT: Nose without bleeding, purulent drainage. Throat without erythema, tonsillar hypertrophy or exudate. Airway patent. NECK: Trachea midline. Non tender EXTREMITIES: Roughly 2 cm laceration to the lateral aspect of the left 3rd digit. Some pain with palpation to the surrounding area. No significant changes to the flexion-extension at the DIP joint. NEURO: AOx3. SKIN: No rash or erythema of visible areas Initial Vital Signs Initial Vital Signs: Vital Signs Temperature 98.3 F 08/20/23 11:07 Pulse Rate 70 08/20/23 11:07 Respiratory Rate 18 08/20/23 11:07 Blood Pressure 123/82 08/20/23 11:07 Pulse Oximetry 99 08/20/23 11:07 Oxygen Delivery Method Room Air 08/20/23 11:07 <Jessica Hanks DO - Last Filed: 08/21/23 07:06> Initial Vital Signs Initial Vital Signs: Vital Signs Temperature 98.3 F 08/20/23 11:07 Pulse Rate 70 08/20/23 11:07 Respiratory Rate 18 08/20/23 11:07 Blood Pressure 123/82 08/20/23 11:07 Pulse Oximetry 99 08/20/23 11:07 Oxygen Delivery Method Room Air 08/20/23 11:07 Procedures <Jerardo Quintana PA-C - Last Filed: 08/20/23 12:17> Laceration Repair Laceration 1: Time of procedure: 11:35 Site: other (Left 3rd digit) Side (If applicable): left Size (cm): 2 Description: linear Depth: simple, single layer Local Anesthetic: lidocaine 1% Amount of anesthesia used (mL): 4 Pre-repair: irrigated extensively and cleansed with chlorhexadine Skin layer closed with: nylon Skin layer suture size: 5-0 Number of sutures: 4 Technique: simple, interrupted Course <Jerardo Quintana PA-C - Last Filed: 08/20/23 12:17> Orders Ordered: Discontinued Medications Diphtheria/Tetanus/Acell Pertussis (Tet,Diph,Pertuss(Acell),Vac/Pf 0.5 Ml Syringe) 0.5 ml IM .ONCE ONE Stop: 08/20/23 11:19 Last Admin: 08/20/23 11:24 Dose: 0.5 ml Documented By: MARTIR Lidocaine HCl (Lidocaine 1% 20 Ml) 20 ml INJ INTRA-OP ONE Stop: 08/20/23 11:19 Last Admin: 08/20/23 11:24 Dose: 20 ml Documented By: MARTIR Vital Signs Vital signs: Vital Signs - 8 hr 08/20/23 11:07 Temperature 98.3 F Pulse Rate 70 Respiratory Rate 18 Blood Pressure 123/82 Pulse Oximetry 99 Oxygen Delivery Method Room Air <Jessica Hanks DO - Last Filed: 08/21/23 07:06> Orders Ordered: Discontinued Medications Diphtheria/Tetanus/Acell Pertussis (Tet,Diph,Pertuss(Acell),Vac/Pf 0.5 Ml Syringe) 0.5 ml IM .ONCE ONE Stop: 08/20/23 11:19 Last Admin: 08/20/23 11:24 Dose: 0.5 ml Documented By: MARTIR Lidocaine HCl (Lidocaine 1% 20 Ml) 20 ml INJ INTRA-OP ONE Stop: 08/20/23 11:19 Last Admin: 08/20/23 11:24 Dose: 20 ml Documented By: MARTIR Vital Signs Vital signs: Vital Signs - 8 hr 08/20/23 11:07 Temperature 98.3 F Pulse Rate 70 Respiratory Rate 18 Blood Pressure 123/82 Pulse Oximetry 99 Oxygen Delivery Method Room Air MDM - Extremity Injury (Upper) <Jerardo Quintana PA-C - Last Filed: 08/20/23 12:17> Imaging Data Extremity x-ray #1: Radiologist's Impression: [address] [address] XRay Report Signed Patient: Coleman Schilling MR#: [id number] : 1985 Acct:[id number] Age/Sex: 38 / M Date of Service: 08/20/23 Loc: ED Accession Number: [id number] Procedure: XR finger LT min 2V Ordering Provider: Jerardo Quintana P.A-C PROCEDURE: XR FINGER LT MIN 2V INDICATIONS: Middle finger crush injury TECHNIQUE: AP hand, 2 views of the 3rd finger(s) acquired. COMPARISON: None. FINDINGS: Bones: No fractures or dislocations. No suspicious bony lesions. Soft tissues: Soft tissue swelling involving distal portion of 3rd finger is seen. No suspicious soft tissue calcifications. IMPRESSION: No gross acute 3rd finger fracture or dislocation. Soft tissue swelling involving distal portion of 3rd digit. Dictated by: Keyur Gunn M.D. on 08/20/2023 at 12:02 Approved by: Keyur Gunn M.D. on 08/20/2023 at 12:03 [facility] Narrative Medical decision making narrative: ED course: This is a 38-year-old male presents to the emergency department due to a laceration to his left 3rd digit. X-ray showed no bony abnormalities.. There was no evidence of any kind of tendon damage as yet appropriate flexion-extension at the PIP and the IP joints. Laceration was closed without complications. Tetanus was updated. Antibiotics will be prescribed for infection prophylaxis as it appears to be a somewhat contaminated wound. CC: Left finger injury Complicating co-morbidities: None Data collected from: Previous notes Medical records reviewed: Patient was seen here 4 years ago due to syncopal episode. 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 Differential considered, but not limited to: Fracture, laceration, tendon injury Exam documented above, pertinent findings include: Appropriate flexion-extension at the DIP joint. Lab Test results independently reviewed as above. Pertinent findings: None obtained Imaging studies independently reviewed: No fracture on x-ray Scores Used: None MIPS Elements: None Consultations: None Treatments: Laceration repair Re-evaluations: None Discussion: Discussed plan with the patient was comfortable with the plan Diagnosis: Left 3rd finger laceration Disposition: see below, along with detailed discharge instructions that have been reviewed with patient as well as indications for ED re-evaluation and additional outpatient follow up Discharge Plan Departure Patient Disposition: Home Clinical Impression: Finger laceration Qualifiers: Encounter type: initial encounter Finger: unspecified finger Damage to nail status: unspecified Foreign body presence: unspecified Laterality: unspecified laterality Qualified Code(s): S61.219A - Laceration without foreign body of unspecified finger without damage to nail, initial encounter Instructions: DI for Suture Removal Activity Restrictions/Additional Instructions: Thank you for coming to the [facility] Emergency Department today. I am glad that we are able to repair finger. Your x-ray shows no fractures. Please speak to your primary care provider or the walk-in clinic for suture removal in 7-10 days. Please take the antibiotics as prescribed. Please return to the emergency department if you develop any fevers, redness spreading of the finger, purulent drainage, worsening pain, or any other concerning signs or symptoms. I hope you feel better soon. Please follow up with your primary care provider within a week if your symptoms continue. If you do not have a primary care provider please contact the [facility] Resource line at [phone]. They will ask some questions about your medical history and help you get set up with a provider in the community. Prescriptions: New cephalexin 500 mg capsule 500 mg PO QID Qty: 20 0RF Referrals: Pasha Samayoa MD [Primary Care Provider] - Stand Alone Forms: Patient Portal/API ED Sign-out <Jessica Hanks DO - Last Filed: 08/21/23 07:06> Cosign ED Attending Marthaature Attestation: I was available for consultation.
[2023-08-20 11:07] VITALS: BP 123/82; PULSE 70; RESP 18; TEMP 36.8; O2SAT 99; BMI 27.8
--- NOTE | 2023-08-20 11:18 | DI.RAD.S_ITS ---
PROCEDURE: XR FINGER LT MIN 2V INDICATIONS: Middle finger crush injury TECHNIQUE: AP hand, 2 views of the 3rd finger(s) acquired. COMPARISON: None. FINDINGS: Bones: No fractures or dislocations. No suspicious bony lesions. Soft tissues: Soft tissue swelling involving distal portion of 3rd finger is seen. No suspicious soft tissue calcifications. IMPRESSION: No gross acute 3rd finger fracture or dislocation. Soft tissue swelling involving distal portion of 3rd digit. Dictated by: Keyur Gunn M.D. on 08/20/2023 at 12:02 Approved by: Keyur Gunn M.D. on 08/20/2023 at 12:03
[2023-08-20] MEDS: TET,DIPH,PERTUSS(ACELL),VAC/PF 0.5 ML SYRINGE IM (11:24)
[2023-08-20] MEDS: LIDOCAINE 1% 20 ML INJ (11:24)
[2023-08-20 12:20] VITALS: BP 126/84; PULSE 60; RESP 18; TEMP 36.5; O2SAT 99
== END 2023-08-20 12:28 | disposition home or self-care (01) ==
PROVIDERS: Emergency Provider Physician Assistant Medical; PCP Family Medicine
DX: S61.313A Laceration without foreign body of left middle finger with damage to nail, initial encounter (principal); W23.0XXA Caught, crushed, jammed, or pinched between moving objects, initial encounter; Z23 Encounter for immunization
CPT/HCPCS: 12001; 73140; 90471; 99283; 99284; 90715